=== PATIENT | male | born 1945 | race Two or more races ===

== ENCOUNTER 2018-08-12 10:06 | Outpatient (CLI) | payer BC, MEDICARE ==
[2018-08-12 10:58] LABS: BASOPHILS % (AUTO) 0.3 % (0.0-2.0); EOSINOPHILS % (AUTO) 1.5 % (0.0-6.0); HEMATOCRIT 47 % (39-51); HEMOGLOBIN 16.3 g/dL (13.5-17.5); LYMPHOCYTES % (AUTO) 36.7 % (20.0-44.0); MEAN CORPUSCULAR HGB CONC 35 g/dl (31.0-36.0); MEAN CORPUSCULAR VOLUME 97 fL (80-96); MONOCYTES # (AUTO) 0.4 /CMM (0.1-1.30); MONOCYTES % (AUTO) 8.1 % (2.0-12.0); NEUTROPHILS # (AUTO) 2.9 /CMM (1.8-8.9); NEUTROPHILS % (AUTO) 53.4 % (43.0-81.0); PLATELET COUNT (AUTO) 238 /CMM (150-450); RED BLOOD CELL COUNT(AUTO) 4.84 MIL/uL (4.5-6.0); WHITE BLOOD COUNT (AUTO) 5.4 K/uL (4.3-11.0)
[2018-08-12 11:18] LABS: ALANINE AMINOTRANSFERASE 30 U/L (12-78); ALKALINE PHOSPHATASE 76 U/L (46-116); ASPARTATE AMINOTRANSFERASE 14 U/L (15-37); BILIRUBIN,TOTAL 0.6 mg/dL (0.2-1.0); CALCIUM, SERUM 9.4 mg/dL (8.5-10.1); CARBON DIOXIDE 33 mmol/L (21-32); CHLORIDE 101 mmol/L (98-107); CREATININE 1.3 mg/dL (0.6-1.3); GLUCOSE 119 mg/dL (74-106); POTASSIUM 3.9 mmol/L (3.5-5.1); SODIUM SERUM 140 mmol/L (136-145); TOTAL PROTEIN, SERUM 7.9 g/dL (6.4-8.2); UREA NITROGEN, BLOOD 19 mg/dL (7-18)
[2018-08-13 08:07] LABS: IMMUNOGLOBULIN A, SERUM 259 mg/dL (61-437); IMMUNOGLOBULIN G, SERUM 1165 mg/dL (700-1600); IMMUNOGLOBULIN M, SERUM 93 mg/dL (15-143)
[2018-08-16 06:08] LABS: FOLIC ACID > 20.0 ng/mL (>3.0)
== END 2018-08-12 23:59 | disposition home or self-care (01) ==
LOC: EDBD 10:06 → LAB 10:06
PROVIDERS: ATTEND Family Medicine
DX: I10 Essential (primary) hypertension (principal); G62.9 Polyneuropathy, unspecified
CPT/HCPCS: 36415; 80053-TC; 82784; 85025-TC; 85652-TC; 86334

== ENCOUNTER 2021-10-15 10:21 | Outpatient (CLI) | payer BC, MEDICARE ==
[2021-10-15 11:26] LABS: BASOPHILS % (AUTO) 0.5 % (0.0-2.0); EOSINOPHILS % (AUTO) 1.3 % (0.0-6.0); HEMATOCRIT 44 % (39-51); HEMOGLOBIN 15.1 g/dL (13.5-17.5); LYMPHOCYTES # (AUTO) 2.2 K/uL (0.8-4.8); LYMPHOCYTES % (AUTO) 30.6 % (20.0-44.0); MEAN CORPUSCULAR HGB CONC 34 g/dl (31.0-36.0); MEAN CORPUSCULAR VOLUME 97 fL (80-96); MONOCYTES # (AUTO) 0.6 K/uL (0.1-1.30); MONOCYTES % (AUTO) 7.8 % (2.0-12.0); NEUTROPHILS # (AUTO) 4.3 K/uL (1.8-8.9); NEUTROPHILS % (AUTO) 59.8 % (43.0-81.0); PLATELET COUNT (AUTO) 250 K/uL (150-450); RED BLOOD CELL COUNT(AUTO) 4.53 MIL/uL (4.5-6.0); WHITE BLOOD COUNT (AUTO) 7.2 K/uL (4.3-11.0)
[2021-10-15 11:43] LABS: ALANINE AMINOTRANSFERASE 31 U/L (12-78); ALBUMIN 3.9 g/dL (3.4-5.0); ALKALINE PHOSPHATASE 72 U/L (46-116); ASPARTATE AMINOTRANSFERASE 19 U/L (15-37); BILIRUBIN,TOTAL 0.6 mg/dL (0.2-1.0); CALCIUM, SERUM 9.6 mg/dL (8.5-10.1); CARBON DIOXIDE 29 mmol/L (21-32); CHLORIDE 103 mmol/L (98-107); CREATININE 1.1 mg/dL (0.6-1.3); GLUCOSE 114 mg/dL (74-106); POTASSIUM 4.1 mmol/L (3.5-5.1); SODIUM SERUM 140 mmol/L (136-145); TOTAL PROTEIN, SERUM 7.8 g/dL (6.4-8.2); UREA NITROGEN, BLOOD 23 mg/dL (7-18)
[2021-10-16 11:05] LABS: BILIRUBIN,URINE NEGATIVE (NEGATIVE); COLOR,URINE YELLOW (YELLOW); LEUKOCYTE ESTERASE ,URINE NEGATIVE (NEGATIVE); NITRITE, URINE NEGATIVE (NEGATIVE); PH,URINE 6.5 (5.0-8.0); PROTEIN,URINE NEGATIVE (NEGATIVE); UGLUCOSE NEGATIVE (NEGATIVE); UROBILINOGEN,URINE 0.2 EU/dL (0.2)
== END 2021-10-15 23:59 | disposition home or self-care (01) ==
LOC: LAB 10:21
PROVIDERS: ATTEND Family Medicine
DX: Z01.818 Encounter for other preprocedural examination (principal)
CPT/HCPCS: 36415; 71045-TC; 80053-TC; 85025-TC; 85730-TC

== ENCOUNTER 2021-10-30 09:57 | Outpatient (CLI) | payer BC ==
[2021-10-30 11:06] LABS: BILIRUBIN,URINE NEGATIVE (NEGATIVE); COLOR,URINE YELLOW (YELLOW); LEUKOCYTE ESTERASE ,URINE NEGATIVE (NEGATIVE); NITRITE, URINE NEGATIVE (NEGATIVE); PH,URINE 5.5 (5.0-8.0); PROTEIN,URINE NEGATIVE (NEGATIVE); UGLUCOSE NEGATIVE (NEGATIVE); UROBILINOGEN,URINE 0.2 EU/dL (0.2)
[2021-10-30 11:39] LABS: ALBUMIN 3.7 g/dL (3.4-5.0); BILIRUBIN,TOTAL 0.5 mg/dL (0.2-1.0); CALCIUM, SERUM 9.2 mg/dL (8.5-10.1); CREATININE 1.1 mg/dL (0.6-1.3); TOTAL PROTEIN, SERUM 7.4 g/dL (6.4-8.2)
== END 2021-10-30 23:59 | disposition home or self-care (01) ==
LOC: LAB 09:57
PROVIDERS: ATTEND Family Medicine
DX: Z01.812 Encounter for preprocedural laboratory examination (principal)
CPT/HCPCS: 36415; 80053-TC; 85730-TC

== ENCOUNTER 2021-11-04 09:10 | Outpatient (CLI) | payer BC ==
[2021-11-04 10:30] LABS: BASOPHILS % (AUTO) 0.6 % (0.0-2.0); EOSINOPHILS % (AUTO) 1.8 % (0.0-6.0); HEMATOCRIT 45 % (39-51); HEMOGLOBIN 15.2 g/dL (13.5-17.5); LYMPHOCYTES # (AUTO) 1.8 K/uL (0.8-4.8); LYMPHOCYTES % (AUTO) 30.8 % (20.0-44.0); MEAN CORPUSCULAR HGB CONC 34 g/dl (31.0-36.0); MEAN CORPUSCULAR VOLUME 98 fL (80-96); MONOCYTES # (AUTO) 0.5 K/uL (0.1-1.30); MONOCYTES % (AUTO) 8.7 % (2.0-12.0); NEUTROPHILS # (AUTO) 3.4 K/uL (1.8-8.9); NEUTROPHILS % (AUTO) 58.1 % (43.0-81.0); PLATELET COUNT (AUTO) 213 K/uL (150-450); RED BLOOD CELL COUNT(AUTO) 4.56 MIL/uL (4.5-6.0); WHITE BLOOD COUNT (AUTO) 5.9 K/uL (4.3-11.0)
== END 2021-11-04 23:59 | disposition home or self-care (01) ==
LOC: LAB 09:10
PROVIDERS: ATTEND Family Medicine
DX: Z01.812 Encounter for preprocedural laboratory examination (principal)
CPT/HCPCS: 36415; 85025-TC

== ENCOUNTER 2022-01-02 09:27 | Outpatient (CLI) | payer BC | END 2022-01-02 23:59 | disposition home or self-care (01) | LOC: LAB 09:27 | PROVIDERS: ATTEND Internal Medicine Interventional Cardiology | DX: Z01.812 Encounter for preprocedural laboratory examination (principal); Z20.822 Contact with and (suspected) exposure to COVID-19 | CPT/HCPCS: U0003; C9803 ==

== ENCOUNTER 2022-01-06 10:21 | Day surgery (SDC) | payer BC ==
[2022-01-06 11:58] LABS: CALCIUM, SERUM 9.4 mg/dL (8.5-10.1); CARBON DIOXIDE 34 mmol/L (21-32); CHLORIDE 102 mmol/L (98-107); CREATININE 1.2 mg/dL (0.6-1.3); GLUCOSE 150 mg/dL (74-106); POTASSIUM 4.2 mmol/L (3.5-5.1); SODIUM SERUM 138 mmol/L (136-145); UREA NITROGEN, BLOOD 18 mg/dL (7-18)
[2022-01-06 12:03] VITALS: BP 133/71
[2022-01-06 12:04] LABS: ALANINE AMINOTRANSFERASE 23 U/L (12-78); ALBUMIN 3.4 g/dL (3.4-5.0); ALKALINE PHOSPHATASE 62 U/L (46-116); ASPARTATE AMINOTRANSFERASE 17 U/L (15-37); BILIRUBIN,TOTAL 0.5 mg/dL (0.2-1.0)
[2022-01-06 12:15] VITALS: BP 125/65
--- NOTE | 2022-01-06 12:17 | NUR ---
Cardioversion done @ bedside. Anesthesia @ bedside provided moderate sedation. Pt placed on Defib pads per MD placement. Cont to present with Afib prior to shock. @ 1202. Pt Shocked with 200 joules and converted to Sinus Bradycardia.(Defib strip placed in chart). Vitals signs remains stable. No distress noted. Cont to mon. post cardioversion.
[2022-01-06 12:30] VITALS: BP 129/77
[2022-01-06] MEDS ORDERED: ANESTHESIA TRAY IN PYXIS 1 EA TRAY MC ONE (12:53)
--- NOTE | 2022-01-06 13:00 | NUR ---
Post Cardioversion. Pt remains SR - SB 55. BP Stable. No distress noted. Remains AA0x4. denies any paoin or discomfort. Recovery uneventful. Planning to discharge home per MD orders
== END 2022-01-06 18:00 | disposition home or self-care (01) ==
LOC: DS 10:21 → ICU 10:26 → UNDOADMIN 10:26 → UNDODISIN 13:48 → DS 18:00
PROVIDERS: ATTEND Internal Medicine Interventional Cardiology
DX: I48.91 Unspecified atrial fibrillation (principal); E66.9 Obesity, unspecified; I10 Essential (primary) hypertension; M10.9 Gout, unspecified; Z98.890 Other specified postprocedural states; Z79.899 Other long term (current) drug therapy
CPT/HCPCS: 92960; 36415; 80053; 99152; 93005 ×2; J2704; J7042; J3490; G0378